=== PATIENT | female | born 1980 | race African-American/Black ===

== ENCOUNTER 2017-04-09 01:52 | Emergency (ER) | payer SELFPAY ==
[~2017-04-09] VITALS: Ht 170.2 cm; Wt 57.0 kg
[2017-04-09 04:00] VITALS: BP 121/63
== END 2017-04-09 05:17 | disposition home or self-care (01) ==
LOC: ER 01:52
DX: S92.911A Unspecified fracture of right toe(s), initial encounter for closed fracture (principal); F17.290 Nicotine dependence, other tobacco product, uncomplicated; F12.10 Cannabis abuse, uncomplicated; X58.XXXA Exposure to other specified factors, initial encounter; Y93.89 Activity, other specified; Y92.89 Other specified places as the place of occurrence of the external cause; Y99.8 Other external cause status; Z98.890 Other specified postprocedural states
CPT/HCPCS: 73620; 81025; 99284

== ENCOUNTER 2017-04-09 12:28 | Emergency (ER) | payer SELFPAY ==
[~2017-04-09] VITALS: Ht 170.2 cm; Wt 57.0 kg
[2017-04-09] MEDS ORDERED: TRAMADOL 50MG TABLET PO ONE (16:15)
[2017-04-09 16:35] VITALS: BP 111/69
== END 2017-04-09 16:43 | disposition home or self-care (01) ==
LOC: ER 16:16
DX: S90.31XA Contusion of right foot, initial encounter (principal); F12.10 Cannabis abuse, uncomplicated; X58.XXXA Exposure to other specified factors, initial encounter; Y93.89 Activity, other specified; Y92.89 Other specified places as the place of occurrence of the external cause; Y99.8 Other external cause status
CPT/HCPCS: 99283

== ENCOUNTER 2017-05-03 17:24 | Emergency (ER) | payer OTHER ==
[~2017-05-03] VITALS: Ht 170.2 cm; Wt 68.2 kg
[2017-05-03 21:00] VITALS: BP 105/59
[2017-05-03] MEDS ORDERED: IBUPROFEN 600MG TABLET PO ONE (21:00)
== END 2017-05-03 21:27 | disposition home or self-care (01) ==
LOC: ER 17:24
DX: M79.671 Pain in right foot (principal); F12.10 Cannabis abuse, uncomplicated; F17.200 Nicotine dependence, unspecified, uncomplicated
CPT/HCPCS: 81025; 99282; Z7610

== ENCOUNTER 2023-10-02 13:08 | Emergency (ER) | payer MEDICAID, OTHER ==
[~2023-10-02] VITALS: Ht 165.1 cm; Wt 65.0 kg
[2023-10-02 13:11] VITALS: BP 104/62; PULSE 79; RESP 16; TEMP 98; O2SAT 100
[2023-10-02] MEDS: TETANUS, DIPHTHERIA, PERTUSSIS VAC/PF 0.5ML (>10YR OLD) IM ONE (14:46)
[2023-10-02] MEDS: ACETAMINOPHEN 325MG TABLET PO ONE (15:30)
== END 2023-10-02 20:53 | disposition home or self-care (01) ==
LOC: ER 13:08
DX: S00.81XA Abrasion of other part of head, initial encounter (principal); F12.10 Cannabis abuse, uncomplicated; Y08.89XA Assault by other specified means, initial encounter; Y93.89 Activity, other specified; Y92.89 Other specified places as the place of occurrence of the external cause; Y99.8 Other external cause status
CPT/HCPCS: 81025; 70450; 90715; 90471; 99285; Z7610

== ENCOUNTER 2023-10-30 15:48 | Emergency (ER) | payer MEDICAID ==
[~2023-10-30] VITALS: Ht 167.6 cm; Wt 54.5 kg
[2023-10-30 16:06] VITALS: BP 105/64; PULSE 78; RESP 18; TEMP 98.5; O2SAT 100
[2023-10-31] MEDS ORDERED: NAPR-681 MT (12:01)
== END 2023-10-30 16:58 | disposition left against medical advice (07) ==
LOC: ER 15:48
DX: M79.604 Pain in right leg (principal); Z53.21 Procedure and treatment not carried out due to patient leaving prior to being seen by health care provider
CPT/HCPCS: 99281

== ENCOUNTER 2023-10-31 09:42 | Emergency (ER) | payer MEDICAID ==
[~2023-10-31] VITALS: Ht 167.6 cm; Wt 54.4 kg
[2023-10-31 09:49] VITALS: O2SAT 100
[2023-10-31] MEDS: KETOROLAC 15MG/ML VIAL IM ONE (11:59)
[2023-10-31] MEDS ORDERED: NAPR-681 MT (12:01)
[2023-10-31] MEDS: ACETAMINOPHEN 325MG TABLET PO ONE (12:01)
[2023-10-31 12:18] VITALS: BP 114/73; PULSE 81; RESP 18; TEMP 98.1
== END 2023-10-31 12:19 | disposition home or self-care (01) ==
LOC: ER 09:42
DX: M79.604 Pain in right leg (principal); F12.10 Cannabis abuse, uncomplicated; Z86.59 Personal history of other mental and behavioral disorders; Z98.890 Other specified postprocedural states
CPT/HCPCS: 81025; 99282